=== PATIENT | male | born 1990 | race Caucasian/White ===

== ENCOUNTER 2024-03-15 07:47 | Outpatient (CLI) | payer BC, SELFPAY ==
--- OUTSIDE RECORDS SUMMARY | 2024-03-15 07:55 | XMS_ITS | Patient Health Record ---
Author Organization [facility] Harpreet whitman Billing Info Address [address] [place] [id number] Support Name Relationship Address Phone Margaret Adilson Guarantor Unknown [phone] Allergies No Known Allergies Reason For Referral No Information Medications Medication SIG (Take, Route, Frequency, Duration) Notes Start Date End Date Status Aleve Active Cyclobenzaprine HCl 10 MG 1 tablet as ne eded Orally Three times a day for 7 day(s) 01/07/2021 Active PredniSONE 10 MG (21) as directed Orally As directed for 6 day(s) 01/07/2021 Active Social History Tobacco Status: Question Answer Notes Patient is a non tobacco user Plan Of Treatment No Information Insurance Providers Payer Name Payer Address Payer Phone Subscriber Number Group Number Insured Name Patient Relationship to Insured Coverage Start Date Coverage End Date [employer] PPO [address] [employer] [id number] Anthony ponce Adilson Self - patient is the insured 1 Medical (General) History Surgical History Surgery Date(Month/Year)
[2024-03-15 08:06] LABS: Basophils Absolute Auto 0.06 K/mm3 (0.00-0.10); Basophils Percent Auto 0.9 % (0.0-1.0); Eosinophils Absolute Auto 0.39 K/mm3 (0.02-0.50); Eosinophils Percent Auto 5.5 % (1.0-6.0); Hematocrit 47.8 % (40.0-54.0); Hemoglobin 15.8 g/dL (14.0-18.0); Immature Granulocyte Absolute 0.02 K/mm3 (0.00-0.00); Immature Granulocyte Percent A 0.3 % (0.0-0.0); Lymphocytes Absolute Auto 2.78 K/mm3 (1.10-4.50); Lymphocytes Percent Auto 39.5 % (18.0-42.0); Mean Corpuscular HGB Conc 33.1 g/dL (32-36); Mean Corpuscular Hemoglobin 28.4 pg (27.0-31.0); Mean Platelet Volume 8.7 fl (8.7-11.0); Monocytes Absolute Auto 0.48 K/mm3 (0.10-0.90); Monocytes Percent Auto 6.8 % (2.0-11.0); Neutrophils Absolute Auto 3.31 K/mm3 (1.70-7.20); Platelet Count Result 328 K/mm3 (150-420); Red Blood Count 5.56 M/mm3 (4.70-6.10); Red Cell Distribution Width 12.8 % (11.6-14.4)
[2024-03-15 08:43] LABS: Hemoglobin A1C 5.3 % (<5.7)
[2024-03-15 09:52] LABS: Alanine Aminotransferase 32 U/L (16-63); Albumin Level 4.6 g/dL (3.4-5.0); Alkaline Phosphatase 67 U/L (46-116); Anion Gap 11 mmol/L (4-12); Aspartate Amino Transferase 13 U/L (15-37); Bilirubin,Total 0.5 mg/dL (0.00-1.00); Blood Urea Nitrogen 13 mg/dL (7-18); Calcium 9.3 mg/dL (8.5-10.1); Carbon Dioxide 25 mmol/L (21-32); Chloride 102 mmol/L (98-108); Cholesterol 213 mg/dL (0-200); Creatine Kinase 66 U/L (39-308); Estimated Glomerular Filt Rate > 60; Ferritin 278 ng/mL (26-388); Glucose 105 mg/dL (70-99); HDL Direct 52 mg/dL (40-60); Iron 55 ug/dL (65-175); LDL Cholesterol Calculated 142 mg/dL (<130); Osmolality Calculated 286 mOsm/kg (285-295); Potassium 4.4 mmol/L (3.5-5.1); Sodium 138 mmol/L (136-145); Total Protein 7.7 g/dL (6.4-8.2); Triglycerides 97 mg/dL (0-150)
== END 2024-03-15 07:48 | disposition home or self-care (01) ==
LOC: CHSLAB 07:54
PROVIDERS: PCP Internal Medicine; Visit Provider Internal Medicine
DX: R73.01 Impaired fasting glucose (principal); I10 Essential (primary) hypertension; E78.2 Mixed hyperlipidemia
CPT/HCPCS: 36415; 80053; 80061; 82550; 82728; 83036; 83540; 85025

== ENCOUNTER 2024-11-01 08:19 | Outpatient (CLI) | payer BC, SELFPAY ==
--- OUTSIDE RECORDS SUMMARY | 2024-11-01 08:23 | XMS_ITS | Patient Health Record ---
Author Organization [facility] Harpreet whitman Billing Info Address [address] [place] [id number] Support Name Relationship Address Phone Margaret Adilson Guarantor Unknown Allergies No Known Allergies Reason For Referral [...] [employer]BS[employer] PPO [address] [employer]ORE [employer] [id number] Anthony ponce Adilson Self - patient is the insured 1 Medical (General) History Surgical History Surgery Date(Month/Year)
[2024-11-01 08:37] LABS: Hematocrit 47.7 % (40.0-54.0); Hemoglobin 15.6 g/dL (14.0-18.0); Mean Corpuscular HGB Conc 32.7 g/dL (32-36); Mean Corpuscular Hemoglobin 28.7 pg (27.0-31.0); Mean Corpuscular Volume 87.7 fL (78.0-102.0); Platelet Count Result 348 K/mm3 (150-420); Red Blood Count 5.44 M/mm3 (4.70-6.10); White Blood Count 8.6 K/mm3 (4.8-10.8)
[2024-11-01 09:13] LABS: Add Urine Microscopic? NO; Appearance Urine Clear (Clear); Glucose Urine UA Negative (Negative); Leukocyte Esterase Ur Negative (Negative); Nitrate Urine Negative (Negative); Specific Grav Ur 1.025 (1.010-1.020)
[2024-11-01 09:25] LABS: Hemoglobin A1C 5.6 % (<5.7)
[2024-11-01 09:28] LABS: Alanine Aminotransferase 21 U/L (6-50); Albumin Level 4.9 g/dL (3.5-5.1); Alkaline Phosphatase 59 U/L (38-126); Anion Gap 12 mmol/L (4-12); Aspartate Amino Transferase 25 U/L (17-59); Bilirubin,Total 0.6 mg/dL (0.2-1.3); Blood Urea Nitrogen 12 mg/dL (9-20); Calcium 10.0 mg/dL (8.4-10.2); Carbon Dioxide 26 mmol/L (22-30); Chloride 105 mmol/L (98-107); Cholesterol 218 mg/dL (0-200); Creatine Kinase 94 U/L (55-170); Estimated Glomerular Filt Rate > 60; Glucose 106 mg/dL (65-110); HDL Direct 50 mg/dL; Iron 91 ug/dL (49-181); Osmolality Calculated 295 mOsm/kg (285-295); Potassium 4.8 mmol/L (3.4-5.0); Sodium 143 mmol/L (137-145); Total Protein 7.8 g/dL (6.3-8.2); Triglycerides 120 mg/dL (<150)
[2024-11-01 10:00] LABS: Ferritin 125.00 ng/mL (17.9-464)
== END 2024-11-01 08:20 | disposition home or self-care (01) ==
LOC: CHSLAB 08:21
PROVIDERS: PCP Internal Medicine; Visit Provider Internal Medicine
DX: I10 Essential (primary) hypertension (principal); E61.1 Iron deficiency; R73.01 Impaired fasting glucose; E78.00 Pure hypercholesterolemia, unspecified
CPT/HCPCS: 36415; 80053; 80061; 81003; 82550; 82728; 83036; 83540; 85027